=== PATIENT | female | born 2000 | race Two or more races ===

== ENCOUNTER 2020-01-27 06:52 | Day surgery (SDC) | payer OTHER ==
[~2020-01-27 06:52] MED LIST: ZOLO PO; [UNRECOGNIZED DRUG - OTHER] PO
[2020-01-27] MEDS ORDERED: PERCOCET 5-3251 EACH PO (09:53)
[2020-01-27] MEDS ORDERED: COLACE100 MG PO (09:54)
== END 2020-01-27 16:05 | disposition home or self-care (01) ==
LOC: CIR.AMB 06:52
PROVIDERS: ATTEND Surgery
DX: K60.1 Chronic anal fissure (principal); K62.4 Stenosis of anus and rectum; Z20.828 Contact with and (suspected) exposure to other viral communicable diseases
CPT/HCPCS: 46700; 46505; J0585; 64430